=== PATIENT | male | born 1970 | race Caucasian/White ===

== ENCOUNTER 2020-01-27 09:49 | Observation (INO) | payer OTHER ==
[~2020-01-27] VITALS: Ht 188 cm; Wt 99.8 kg
[2020-01-27 09:55] VITALS: BP 200/128
[2020-01-27] MEDS ORDERED: LISINOPRIL2.5 MG PO (09:57)
[2020-01-27 10:34] LABS: ABSOLUTE BASOPHILS 0.1 thou/uL (0.0-0.2); ABSOLUTE EOSINOPHILS 0.2 thou/uL (0.0-0.7); ABSOLUTE LYMPHOCYTES 2.4 thou/uL (0.8-5.3); ABSOLUTE MONOCYTES 0.6 thou/uL (0.0-1.2); ABSOLUTE NEUTROPHILS 6.1 thou/uL (1.6-8.1); BASOPHILS 0.6 %; EOSINOPHILS 2.1 %; HEMATOCRIT 46.9 % (42.0-52.0); HEMOGLOBIN 16.2 gm/dL (14.0-18.0); LYMPHOCYTES 25.6 %; MCH 28.4 pg (26.0-34.0); MCHC 34.6 g/dL (28.0-37.0); MONOCYTES 6.5 %; MPV 7.7 fl. (7.2-11.1); NUCLEATED RBCS 0 /100WBC; PLATELET COUNT* 299 thou/uL (150-400); POLYS 65.2 %; RBC 5.72 mil/uL (4.50-6.00); WBC 9.3 thou/uL (4.0-11.0)
[2020-01-27 10:44] LABS: CALCIUM 8.2 mg/dL (8.5-10.1); CREATININE 1.2 mg/dL (0.6-1.3); POTASSIUM 3.4 mmol/L (3.5-5.1)
[2020-01-27 10:47] LABS: APTT 28.7 Seconds (25.0-31.3); PROTIME 10.3 Seconds (9.20-11.50)
[2020-01-27 10:55] LABS: ALBUMIN 4.2 g/dL (3.4-5.0); MAGNESIUM 2.1 mg/dL (1.8-2.4); TOTAL BILIRUBIN 0.4 mg/dL (<0.1-1.0); TOTAL PROTEIN 8.2 g/dL (6.4-8.2)
[2020-01-27 11:45] VITALS: BP 138/91
[2020-01-27 12:26] VITALS: BP 143/93
[2020-01-27 17:13] VITALS: BP 144/94
[2020-01-27 20:10] VITALS: BP 147/98
[2020-01-27 23:59] VITALS: BP 140/82
[2020-01-28 04:31] VITALS: BP 167/102
[2020-01-28 04:54] LABS: CHOLESTEROL 174 mg/dL (<200); HDL CHOLESTEROL 27 mg/dL (>40); LDL CHOLESTEROL 118 mg/dL (<100); TC:HDL 6.4 Ratio (Not establshd); TRIGLYCERIDE 146 mg/dL (<150); VLDL 29 mg/dL (<40)
[2020-01-28 05:21] LABS: SERUM ASSESSMENT CLEAR
[2020-01-28 08:23] VITALS: BP 161/112
[2020-01-28] MEDS ORDERED: LISINOPRIL40 MG PO (09:05)
[2020-01-28] MEDS ORDERED: FISH OIL 1,0001 EAC9 PO (09:05)
--- NOTE | 2020-01-28 10:47 | EKG ---
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1970 Requested By: Rober Nolasco Order Number: [id number] MD: Raji Martin Measurements Intervals [place] Rate: 78 P: 35 NM: 156 QRS: 27 QRSD: 114 T: -1 QT: 396 QTc: 452 Interpretive Statements Sinus rhythm Borderline intraventricular conduction delay Baseline wander in lead(s) II,III,aVF No previous ECG available for comparison Electronically Signed On 01-28-2020 10:47:16 CDT by Raji Martin [email or web address] <ELECTRONICALLY SIGNED> By: Raji Martin MD, FACC 01/28/20 1047 0953 0953 Raji Martin MD, [facility] /EPI
--- NOTE | 2020-01-28 10:48 | EKG ---
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
[2020-01-28 12:12] VITALS: BP 148/91
[2020-01-28 13:33] VITALS: BP 148/91
--- NOTE | 2020-01-28 13:38 | EXE ---
[place] [address] STRESS ECHOCARDIOGRAM Name: ENOCHPERKAT Camacho [address] [id number] Admission: 01/27/20 Attend Phys: Carmen Martell, Discharge: Date of : 66 Date of Service: 01/28/20 1338 Report #: [id number] THIS REPORT FOR: cc: FAM - No family physician/PCP FAM - No family physician/PCP Hira Handy MD [facility] ~ APPROVED REPORT Study performed: 01/28/2020 11:49:57 Exam: Stress Echocardiogram Indication: Dyspnea , Chest pain Patient Location: In-Patient Stress Nurse: Lauren Singh RN Room #: [facility] Supervising Physician: Hira Handy MD Ht: 6 ft 2 in HR: 71 bpm BP: 169/103 mmHg Medical History Cardiac Risk Factors: Age, , HTN, FHX of CAD Procedure The patient underwent an Exercise Stress Test using the James Protocol. Blood pressure, heart rate, and EKG were monitored. An Echocardiogram was performed by mathematics technician in four stages in quad fashion. At peak stress, four selected images were obtained and placed side by side with resting images for comparison. Stress Test Details Stress Test: Exercise stress testing was performed using a James protocol. HR Resting HR: 71 bpm Max Heart Rate (APMHR): 169 bpm Max HR Achieved: 145 bpm Target HR (85% APMHR): 143 bpm % of APMHR: 85 Recovery HR: 86 bpm HR response to stress: Normal HR response to stress BP Resting BP: 169/103 mmHg Max BP: 257/106 mmHg Recovery BP: 177/110 [place] [address] STRESS ECHOCARDIOGRAM Name: KAT MCKEON Room: [address]#: [id number] Admission: 01/27/20 Attend Phys: Carmen Martell, Discharge: Date of : 66 Date of Service: 01/28/20 1338 Report #: [id number] BP response to stress: Abnormal hypertensive response to stress. ECG Resting ECG: Sinus Rhythm, nonspecific ST-T abnormalities Stress ECG: Sinus Tachycardia ST Change: Downsloping ST depression Maximum ST Deviation: 1 mm Arrhythmia: None Recovery ECG: Sinus Rhythm Recovery ST Change: Downsloping ST depression Recovery ST Deviation: 1 mm Recovery Arrhythmia: None Clinical Reason for Termination: Blood Pressure too high Exercise duration: 5 min sec Highest Stage Achieved: Stage 2: 2.5 mph at 12% grade. The patient tolerated standard James protocol exercise without significant cardiac symptoms. Stress ECG Conclusion Baseline twelve-lead EKG shows sinus rhythm with some nonspecific ST segment depression in the inferior leads. EKGs obtained during and post exercise show sinus rhythm and sinus tachycardia with [address] segment depression in the inferolateral leads. There were no stress-induced arrhythmias. Pre-Stress Echo The resting Echocardiogram showed normal left ventricular contractility with an estimated Ejection Fraction of about 60-65%. The resting echocardiogram demonstrated normal wall motion in all wall segments. Post-Stress Echo The stress Echocardiogram showed normal left ventricular contractility with an estimated Ejection Fraction of about >70%. Compared to rest, there were no stress-induced wall motion abnormalities. Conclusion Clinical Response: Non-ischemic Exercise Capacity: Below Average Stress ECG Response: Ischemic Stress Echo Images: Non-ischemic The stress echocardiographic [place] [address] STRESS ECHOCARDIOGRAM Name: ENOCHPERKAT Camacho Room: [address]#: [id number] Admission: 01/27/20 Attend Phys: Carmen Martell, Discharge: Date of : 66 Date of Service: 01/28/20 1338 Report #: [id number] stress-induced wall motion abnormality. The patient exhibited poor exercise tolerance. There was a hypertensive response to exercise. EKG changes noted were likely due to hypertensive response to exercise. This is not a high risk study. Other Information Study Quality: Fair <Conclusion> The stress echocardiographic images showed no evidence of stress-induced wall motion abnormality. The patient exhibited poor exercise tolerance. There was a hypertensive response to exercise. EKG changes noted were likely due to hypertensive response to exercise. This is not a high risk study. <ELECTRONICALLY SIGNED> By: Hira Handy MD, FACC 01/28/20 1338 1338 Hira Handy MD, FACC /INF
[2020-01-28] MEDS ORDERED: NEXIUM40 MG PO (14:04)
[2020-01-29 02:06] LABS: GLYCOHEMOGLOBIN (HGB A1C) 5.8 % (4.8-5.6)
--- NOTE | 2020-01-29 10:21 | CON ---
[address] [address] CONSULTATION Name: KAT MCKEON Room: [address] Brenda Huynh#: [id number] Admission: 01/27/20 Attend Phys: Carmen Martell MD Discharge: 01/28/20 Date of : 66 Report #: [id number] THIS REPORT FOR: //name// cc: VIDYA Phillips family physician/PCP VIDYA - No family physician/PCP ~ THIS REPORT FOR: //name// CC: Rober Nolasco DATE OF SERVICE: 01/27/2020 CARDIOLOGY CONSULTATION HISTORY OF PRESENT ILLNESS: The patient is a 49-year-old white male who I was asked to see in the Emergency Room today after he complained of being short of breath. The patient has no previous history of heart disease. In fact, he states he was admitted to [facility] about 3 years ago with chest pain. He apparently had a stress test that showed no significant coronary artery disease. He was doing well until the past few weeks, he has had increasing dyspnea on exertion. Denies any edema, fever or cough. He has had no orthopnea. This past weekend, he went to a plane flight to [place]. When he returned yesterday, his right and left hands felt numb. However, he could move the hands. Denied any swelling. The pressure in his chest has been a constant recently. It is not related to exertion or meals. He has had no bleeding. He came to the Emergency Room and is admitted for further evaluation and treatment. PAST MEDICAL HISTORY: He has had no surgical procedures. He has a history of hypertension, has been on lisinopril in the past. ALLERGIES: He has no known drug allergies. FAMILY HISTORY: His father had stent. REVIEW OF SYSTEMS: He has had no history of stroke, asthma, liver disease, kidney disease, cancer, psychiatric illness, chronic skin condition. PHYSICAL EXAMINATION: GENERAL: Revealed a middle-aged male, appeared in no distress. VITAL SIGNS: Blood pressure was 170/100, pulse 74. He is afebrile. HEENT: He was anicteric. Conjunctivae pink. Mucous membranes moist. NECK: Neck veins are nondistended. CHEST: Clear to auscultation. CARDIOVASCULAR: Regular rate and rhythm, no murmur. ABDOMEN: Soft. EXTREMITIES: Had no edema. Posterior tibial pulse 2+ [place] [address] CONSULTATION Name: KAT MCKEON Room: [address]#: [id number] Admission: 01/27/20 Attend Phys: Carmen Martell MD Discharge: 01/28/20 Date of : 66 Report #: [id number] SKIN: Cool and dry. NEUROLOGIC: Nonfocal. LYMPH: No adenopathy. MUSCULOSKELETAL: No joint effusion. RADIOLOGICAL DATA: ECG showed a sinus rhythm with nonspecific ST-segment changes. His workup in the Emergency Room, he had a portable chest x-ray that showed clear lung squires, normal heart size. LABORATORY DATA: In the Emergency Room, BUN 11, creatinine 1.2, glucose 103. His troponins are 0.006. White blood cell count 9.3, hemoglobin 16.2. IMPRESSION AND RECOMMENDATIONS: 1. Shortness of breath. Reason unclear. No evidence of asthma or heart failure. Recommend stress echocardiogram. 2. Chest pressure. Atypical for angina. Recommend stress echocardiogram. 3. Hypertension. The patient is on LUNA inhibitor. 4. Tingling of his hands. Suspect neuropathy. <ELECTRONICALLY SIGNED> By: Raji Martin MD, FACC 01/29/20 1021 1140 1202Ddanisha Martin MD, FACC /nt
== END 2020-01-28 14:08 | disposition home or self-care (01) ==
LOC: M.ERS 09:49 → M.2W 11:12 → M.TBA-ER 11:12 → M.2W 12:08
PROVIDERS: Emergency Medicine Emergency Medical Services; Internal Medicine Cardiovascular Disease; ADMIT Internal Medicine; ATTEND Internal Medicine
DX: R07.89 Other chest pain (principal); R06.00 Dyspnea, unspecified; R61 Generalized hyperhidrosis; I10 Essential (primary) hypertension; E87.6 Hypokalemia; R94.31 Abnormal electrocardiogram [ECG] [EKG]; E66.9 Obesity, unspecified; R20.2 Paresthesia of skin; Z68.28 Body mass index [BMI] 28.0-28.9, adult; Z79.899 Other long term (current) drug therapy; Z20.828 Contact with and (suspected) exposure to other viral communicable diseases